=== PATIENT | male | born 1955 | race Hispanic/Latino ===

== ENCOUNTER → 2022-05-26 | Outpatient (CLI) | payer OTHER, MEDICARE ==
[~2022-05-26] MED LIST: ASPI-556 PO; NEBI5TAB8 PO; OLME-38 PO; Prasugrel Hcl PO
== END | disposition home or self-care (01) ==
LOC: RAH 10:11
PROVIDERS: ATTEND Internal Medicine Gastroenterology
DX: R14.0 Abdominal distension (gaseous) (principal); R10.10 Upper abdominal pain, unspecified
CPT/HCPCS: 76700

== ENCOUNTER 2022-08-29 10:13 | Emergency (ER) | payer OTHER, MEDICARE ==
[~2022-08-29] VITALS: Ht 175.3 cm; Wt 115.7 kg
[2022-08-29 11:49] LABS: BASOPHILS % (AUTO) 0.4 % (0.0-5.0); EOSINOPHILS % (AUTO) 1.5 % (0.0-8.0); HEMATOCRIT 42.7 % (42-54); LYMPHOCYTES % (AUTO) 15.4 % (21.0-51.0); MEAN CORPUSCULAR HEMOGLOBIN 28.5 pg (27.0-33.0); MEAN CORPUSCULAR HGB CONC 33.7 g/dL (32.0-36.0); MEAN CORPUSCULAR VOLUME 84.4 fL (79-99); MONOCYTES % (AUTO) 11.8 % (3.0-13.0); NEUTROPHILS % (AUTO) 70.5 % (40.0-77.0); PLATELET COUNT (AUTO) 280 K/uL (130-400); RED BLOOD CELL COUNT(AUTO) 5.06 MIL/uL (4.50-6.20); RED CELL DISTRIBUTION WIDTH 14.1 % (11.0-15.5); WHITE BLOOD COUNT (AUTO) 7.9 K/uL (4.8-10.8)
[2022-08-29 12:04] LABS: CREATININE 1.2 mg/dL (0.5-1.5)
[2022-08-29 12:08] LABS: ALBUMIN 3.9 g/dL (3.5-5.0)
[2022-08-29 14:32] VITALS: BP 126/75
[2022-08-29 15:09] LABS: APPEARANCE,URINE CLEAR (CLEAR); BILIRUBIN,URINE NEGATIVE (NEGATIVE); COLOR,URINE LIGHT-YELLOW (YELLOW); GLUCOSE, URINE (UA) >=1000 mg/dL (NEGATIVE); KETONES,URINE NEGATIVE (NEGATIVE); LEUKOCYTE ESTERASE ,URINE NEGATIVE Leu/uL (NEGATIVE); NITRATE,URINE NEGATIVE (NEGATIVE); OCCULT BLOOD,URINE NEGATIVE (NEGATIVE); PROTEIN,URINE 100 mg/dL (NEGATIVE); UROBILINOGEN,URINE 0.2 mg/dL (0.2-1.0)
[2022-08-29 15:13] LABS: RBC,URINE None Seen /HPF (0-1); WBC,URINE 0-1 /HPF (0-1)
== END 2022-08-29 16:21 | disposition home or self-care (01) ==
LOC: EDH 10:13
DX: F43.0 Acute stress reaction (principal); R06.00 Dyspnea, unspecified; I11.9 Hypertensive heart disease without heart failure; E11.9 Type 2 diabetes mellitus without complications; E78.00 Pure hypercholesterolemia, unspecified; F41.9 Anxiety disorder, unspecified; I21.9 Acute myocardial infarction, unspecified; Z85.528 Personal history of other malignant neoplasm of kidney; Z79.899 Other long term (current) drug therapy; Z98.890 Other specified postprocedural states
CPT/HCPCS: 36415; 71045; 80053; 81001; 84484; 85025; 93005

== ENCOUNTER 2025-05-01 19:11 | Emergency (ER) | payer OTHER, MEDICARE ==
[~2025-05-01] VITALS: Ht 177.8 cm; Wt 83.9 kg
[~2025-05-01 19:11] MED LIST changes: -NEBI5TAB8 PO; +NEBI5TAB9 PO
--- NOTE | 2025-05-01 19:39 | ERN ---
General Chief Complaint: Sore Throat Stated Complaint: C/O COUGH,FEVER,SORE THROAT,BODYACHES X 4 DAYS Time Seen by MD: 19:17 History of Present Illness Initial Comments 70-year-old male with productive cough fever chills shortness of breath for four days. His past medical history does include mild COPD for which he uses an occasional inhaler. Allergies: Coded Allergies: No Known Drug Allergies (Verified Allergy, Unknown, 09/29/16) Home Meds Active Scripts [Prasugrel Hcl] 10 MG TABLET No Conflict Check, 10 MG PO DAILY, #30 3 Refills Prov:MARY MARTÍNEZ [employer] WORK[employer] 09/30/16 Reported Medications Aspirin (Aspir 81) 81 Mg Tablet.dr, 81 MG PO DAILY, TAB 09/30/16 Olmesartan/Hydrochlorothiazide (Benicar Hct 20-12.5 mg Tablet) 1 Each Tablet, 1 EACH PO DAILY, TAB 09/30/16 Nebivolol HCl (Bystolic) 5 Mg Tablet, 5 MG PO BID, TAB 09/30/16 Past Medical History Past Medical History: Hypertension, Other Medical History Other: HEART ATTACK (2007); RENAL CA (2002) Past Surgical History: Other Surgical History Other: HEART STENTS; LEFT INDEX FINGER AMPUTATED; LEFT NEPHRECTOMY (2002)Gastric s Social History Social History: Other Constitutional: (+) chills, (+) fever, (+) malaise EENTM: (-) eye pain, (-) blurred vision, (-) tearing, (-) double vision, (-) ear pain, (-) ear discharge, (-) nose pain, (-) nose congestion, (-) throat pain, (-) Throat swelling, (-) mouth pain, (-) tooth pain, (-) mouth swelling, (-) other documentation Respiratory: (+) cough, (+) short of breath, (+) wheezing Cardiovascular: (-) chest pain, (-) edema, (-) palpitations, (-) syncope, (-) dyspnea on exertion, (-) other documentation Gastrointestinal/Abdominal: (-) nausea, (-) vomiting, (-) diarrhea, (-) abdominal pain, (-) abdominal distention, (-) constipation, (-) rectal bleeding, (-) dark stool/melena, (-) other documentation Genitourinary: (-) penile discharge, (-) dysuria, (-) frequency, (-) hematuria, (-) pain, (-) other documentation Musculoskeletal: (-) Neck pain, (-) back pain, (-) Flank Pain, (-) joint pain, (-) joint swelling, (-) muscle pain, (-) muscle stiffness, (-) gout, (-) other documentation Physical Exam General Appearance: (+) no apparent distress Orientation: (+) alert, (+) oriented x 3 Head/Face Trauma: No Eye: bilateral eye normal inspection, bilateral eye PERRL, bilateral eye EOMI Ear, Nose, Throat: (+) hearing grossly normal, (+) normal ENT inspection, (+) moist mucous membraine, (+) normal pharynx Neck: (+) normal inspection, (+) supple, (+) full range of motion Respiratory: (+) chest non-tender, (+) lungs clear, (+) well ventilated Respiratory Comment Deep breaths caused coughing. Heart: (+) regular, (+) no gallop Vascular: (+) no edema, (+) normal peripheral pulse Gastrointestinal: (+) soft, (+) non-tender, (+) no organomegaly, (+) bowel sound present Results Laboratory and Microbiology Lab and Micro Result Laboratory Tests Test 05/01/25 19:23 05/01/25 20:31 Influenza Type A Antigen Negative For Type A Influenza Type B Antigen Negative For Type B SARS-CoV-2, RNA, NAAT NEGATIVE SARS CoV-2 Group A Streptococcus Rapid negative (NEGATIVE) White Blood Count 6.8 K/uL (4.8-10.8) Red Blood Count 4.69 MIL/uL (4.50-6.20) Hemoglobin 13.6 g/dL (14.0-18.0) L Hematocrit 41.4 % (42-54) L Mean Corpuscular Volume 88.3 fL (79-99) Mean Corpuscular Hemoglobin 29.0 pg (27.0-33.0) Mean Corpuscular Hemoglobin Concent 32.9 g/dL (32.0-36.0) Red Cell Distribution Width 14.4 % (11.0-15.5) Platelet Count 321 K/uL (130-400) Mean Platelet Volume 9.2 fL (7.5-10.5) Immature Granulocyte % (Auto) 0.3 % (0-1) Neutrophils (%) (Auto) 51.9 % (40.0-77.0) Lymphocytes (%) (Auto) 36.9 % (21.0-51.0) Monocytes (%) (Auto) 9.9 % (3.0-13.0) Eosinophils (%) (Auto) 0.7 % (0.0-8.0) Basophils (%) (Auto) 0.3 % (0.0-5.0) Neutrophils # (Auto) 3.5 K/uL (1.8-7.7) Lymphocytes # (Auto) 2.5 K/uL (1.0-4.8) Monocytes # (Auto) 0.7 K/uL (0.1-1.0) Eosinophils # (Auto) 0.05 K/uL (0.00-0.70) Basophils # (Auto) 0.02 K/uL (0.00-0.20) Absolute Immature Granulocyte (auto 0.02 K/uL (0-1) Nucleated Red Blood Cells 0.0 % (0.0-0.19) Sodium Level 136 mmol/L (136-145) Potassium Level 4.9 mmol/L (3.5-5.1) Chloride Level 104 mmol/L (101-111) Carbon Dioxide Level 26 mmol/L (21-32) Blood Urea Nitrogen 16 mg/dL (7-18) Creatinine 1.0 mg/dL (0.5-1.3) Glomerular Filtration Rate Calc 82 mL/min (>90) Random Glucose 97 mg/dL (70-105) Total Calcium 8.4 mg/dL (8.5-10.1) L MDM MDM: Differential diagnosis: Upper respiratory tract infection, possible COPD, pneumonia, asthma exacerbation Rationale: Tests considered and ordered secondary to shared decision making include: Previous outside records reviewed: Old ER visits. Risk of complication and/or morbidity or mortality of patient management: None Medications-Per medication reconciliation Need for hospitalization: Patient does meet criteria for hospitalization. Need for emergency major/minor surgery: No There are no social concerns with this patient. Prescription drug management Prescriptions will include symptomatic care Patient's prior external medical records from other ER visits were reviewed by me as indicated. Prior testing and results from previous visits were reviewed. Prior tests were taken into account with medical decision making and resource utilization, independent historian/historians were used to obtain complete medical history. I independently interpreted the test that were performed, results were reviewed by me and considered findings on radiology if ordered. Patient's throat swabs are negative for strep throat COVID or influenza. Chest x-ray showed a nodule present in the right upper lobe and also a new one possibly in the right lower lobe. I discussed these findings with the radiologist who assured me that they were most likely a rib shadows or costal cartilaginous structures. CT scan showed that the right upper lobe radio opaque lesion was indeed a costochondral junction. The right lower lobe radio opaque lesion could not be seen on the chest CT scan. Both nodules are benign. No follow-up needed. ED Course Orders Procedure Category Date Status Time Covid Rna Naat LAB 05/01/25 Complete 19:22 Influenza Type A & B, LAB 05/01/25 Complete Rapid 19:22 Rapid (Group A Strep) LAB 05/01/25 Complete 19:22 Cbc With Differential LAB 05/01/25 Complete 19:23 Chest 1vw RAD 05/01/25 Resulted 19:23 Basic Metabolic Panel LAB 05/01/25 Complete 21:25 Ct Chest W/Wo Contrast CT 05/01/25 Taken 21:42 Iohexol (Omnipaque) PHA 05/01/25 Complete 22:45 Current Medications Medications (Trade) Dose Ordered Sig/Janina Route PRN Reason Start Time Stop Time Status Last Admin Dose Admin Iohexol (Omnipaque) 75 ml STK-MED ONCE IV 05/01/25 22:45 05/01/25 22:45 DC Vital Signs Date Time Temp Pulse Resp B/P (MAP) Pulse Ox O2 Delivery O2 Flow Rate FiO2 05/01/25 20:48 97.7 60 20 162/91 97 Room Air* 0 21 05/01/25 19:12 97.7 63 20 170/116 97 Room Air DX & DISP Disposition: Discharge Departure Impression: Primary Impression: Upper respiratory tract infection Condition: Stable Additional Instructions: You have an upper respiratory tract infection it is most likely viral in origin and the best thing to do is simply help control your symptoms with Tylenol or ibuprofen. Drink plenty of fluids to help you clear your secretions. Tylenol to control your fevers. If your cold does not get better in the next week please follow-up with her primary care physician. There is no reason for antibiotics at this point. Referrals: DWIGHT TRIVEDI MD (PCP) ANASTACIA MONTANEZ MD May 01, 2025 19:39
[2025-05-01 19:59] LABS: RAPID GROUP A STREP negative (NEGATIVE)
[2025-05-01 20:01] LABS: SARS-CoV-2, RNA, NAAT NEGATIVE SARS CoV-2 (NEGATIVE)
[2025-05-01 20:08] LABS: INFLUENZA TYPE A Negative For Type A (NEGATIVE); INFLUENZA TYPE B Negative For Type B (NEGATIVE)
[2025-05-01 20:41] LABS: IMMATURE GRANULOCYTE ABSOLUTE 0.02 K/uL (0-1); NUCLEATED RED BLOOD CELLS 0.0 % (0.0-0.19); PLATELET COUNT (AUTO) 321 K/uL (130-400); RED BLOOD CELL COUNT(AUTO) 4.69 MIL/uL (4.50-6.20); RED CELL DISTRIBUTION WIDTH 14.4 % (11.0-15.5); WHITE BLOOD COUNT (AUTO) 6.8 K/uL (4.8-10.8)
--- NOTE | 2025-05-01 21:31 | HMCIMG ---
EXAM: CR Chest, 1 view CLINICAL HISTORY: Cough. Wheezing. COMPARISON: Chest radiograph dated 08/29/2022. FINDINGS: The lungs show no infiltrates or other acute findings. No pleural effusion or pneumothorax. The cardiomediastinal silhouette is within normal limits. No acute osseous abnormality. IMPRESSION: No acute cardiopulmonary process is evident. Compared to the prior study, there is no significant interval change. /[place]
[2025-05-01 21:46] LABS: CREATININE 1.0 mg/dL (0.5-1.3); GLOMERULAR FILTR. RATE CALC 82.0 mL/min (>90); GLUCOSE,RANDOM 97.0 mg/dL (70-105); SODIUM SERUM 136.0 mmol/L (136-145); UREA NITROGEN, BLOOD 16.0 mg/dL (7-18)
[2025-05-01] MEDS ORDERED: IOHEXOL-350 75 ML VIAL IV ONE (22:45)
--- NOTE | 2025-05-02 01:12 | HMCIMG ---
EXAM: CT Chest without and with IV contrast CLINICAL HISTORY: Solitary lung nodule. TECHNIQUE: Thin-section axial CT through the thorax without and with intravenous contrast. Coronal, sagittal, and MIP reformation were generated on the same workstation. CT scan done according to ALARA (As Low as Reasonably Achievable). CONTRAST USED: Omnipaque 350. COMPARISON: None provided. FINDINGS: Mild subsegmental atelectasis in the right lung base. No pulmonary nodules. No pleural effusions. No pericardial effusion. The heart size is within normal limits. Scattered atherosclerotic plaques and wall calcifications in the thoracic aorta and coronary arteries. No axillary, supraclavicular, or mediastinal lymphadenopathy. No focal thyroid abnormality. The left kidney is not visualized in the left renal fossa with surgical clips in this area. Status post gastric bypass. The remaining visualized upper abdominal organs are within normal limits. No acute or suspicious osseous abnormality. Mild thoracic spondylosis. 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 Degenerative costochondral calcifications at multiple levels. IMPRESSION: No suspicious pulmonary nodule or mass is evident. No acute cardiopulmonary process. Mild subsegmental atelectasis in the right lung base. /[place]
[2025-05-02 01:15] VITALS: BP 142/86; PULSE 64; RESP 16; TEMP 98; O2SAT 99
== END 2025-05-02 01:16 | disposition home or self-care (01) ==
LOC: EDH 19:11
DX: J06.9 Acute upper respiratory infection, unspecified (principal); I10 Essential (primary) hypertension; J44.9 Chronic obstructive pulmonary disease, unspecified; Z79.82 Long term (current) use of aspirin; Z79.899 Other long term (current) drug therapy; Z85.528 Personal history of other malignant neoplasm of kidney; Z90.5 Acquired absence of kidney; Z95.5 Presence of coronary angioplasty implant and graft; Z20.822 Contact with and (suspected) exposure to COVID-19
CPT/HCPCS: 99285; 71270; 71045; 87635; 80048; 85025; 87880; 87804 ×2; 36415; Q9967